=== PATIENT | female | born 1980 | race Caucasian/White ===

== ENCOUNTER 2019-11-14 10:31 | Outpatient (RCR) | payer BC | END 2020-02-12 | disposition home or self-care (01) | LOC: CARD 10:31 | PROVIDERS: ATTEND Internal Medicine Interventional Cardiology | DX: I49.3 Ventricular premature depolarization (principal); E66.01 Morbid (severe) obesity due to excess calories | CPT/HCPCS: 93306 ==

== ENCOUNTER → 2020-01-02 | Outpatient (CLI) | payer BC | LOC: CARD 08:00 | PROVIDERS: ATTEND Internal Medicine Interventional Cardiology | DX: I49.3 Ventricular premature depolarization (principal) | CPT/HCPCS: 93225; 93226 ==